=== PATIENT | female | born 1945 | race Caucasian/White ===

== ENCOUNTER 2020-05-23 09:59 | Outpatient (CLI) | payer MEDICARE, SELFPAY ==
--- NOTE | 2020-05-23 14:29 | WPDSIXMINUTE ---
Six Minute Walk This is a 6 minutes walk for exertional dyspnea. Findings: The patient's resting room air oxygen saturation measured by pulse oximetry was 94% and her resting heart rate was 84 bpm. Patient ambulated for 274 meters and oxygen saturation remained 86 to 94%. Heart rate at the end of the study was 110 bpm. Of note this was a 6 minutes walk test for evaluation of pre pulmonary rehabilitation. No oxygen titration was performed. In the future the patient should be formally evaluated for oxygen supplementation with ambulation. There are no prior studies for comparison.
== END 2020-05-23 10:00 | disposition home or self-care (01) ==
LOC: ANHPFT 10:01
PROVIDERS: PCP Family Medicine
DX: J44.9 Chronic obstructive pulmonary disease, unspecified (principal)
CPT/HCPCS: 94618

== ENCOUNTER 2020-09-26 11:00 | Outpatient (RCR) | payer MEDICARE, SELFPAY ==
[2020-05-29 12:30] VITALS: PULSE 75
--- NOTE | 2020-06-07 09:27 | PCCPR ---
Tonya Lara called this am states she has had a headache yesterday and today. She cancelled today's session.
--- NOTE | 2020-06-26 14:56 | PCCPR ---
Jane absent tomorrow 06/27 due to inclement weather.
--- NOTE | 2020-06-30 08:32 | PCCPR ---
Pt cxl NC today due to s/s from COVID vaccine.
--- NOTE | 2020-08-15 10:52 | PCCPR ---
Pt cxl today due to taking daughter to [facility].
--- NOTE | 2020-09-12 12:25 | PCCPR ---
Tonya Lara called states she is not feeling well.
== END 2020-09-26 13:52 | disposition home or self-care (01) ==
LOC: ANHCPREHAB 11:00
PROVIDERS: PCP Family Medicine
DX: J44.9 Chronic obstructive pulmonary disease, unspecified (principal)
CPT/HCPCS: 97150; G0424

== ENCOUNTER 2020-11-08 13:06 | Outpatient (CLI) | payer MEDICARE, SELFPAY ==
--- NOTE | 2020-11-08 16:23 | WPDSIXMINUTE ---
Six Minute Walk Procedure Procedure Performed Pulmonary Stress Test (6 min walk) Six Minute Walk This is a 6 minutes walk test. The test was performed and interpreted in accordance with the 2014 ERS/ATS task force guidelines. Findings: The patient's resting room air oxygen saturation measured by pulse oximetry was 95% and her heart rate was 80 bpm. Patient ambulated for 427 meters and oxygen saturation remained 86 to 97%. Heart rate at the end of the study was 104 bpm. The patient did have desaturations less than 88% at the end of the study and should be formally evaluated for home oxygen.
== END 2020-11-08 13:07 | disposition home or self-care (01) ==
LOC: ANHPFT 13:11
PROVIDERS: PCP Family Medicine; Visit Provider Family Medicine
DX: J44.9 Chronic obstructive pulmonary disease, unspecified (principal)
CPT/HCPCS: 94618

== ENCOUNTER 2022-08-10 09:32 | Emergency (ER) | payer MEDICARE, SELFPAY ==
[2022-08-10 09:39] VITALS: BP 148/86; PULSE 83; RESP 18; TEMP 36.6; O2SAT 96
--- NOTE | 2022-08-10 09:48 | ED.URI ---
HPI - URI/Sore Throat General Chief Complaint: Upper Respiratory Infection Stated Complaint: Chest Congestion/Cough Time Seen by Provider: 08/10/22 09:48 Source: patient and RN notes reviewed Mode of arrival: ambulatory Limitations: no limitations History of Present Illness HPI Narrative: 76-year-old female presented for complaint of cough worsening over the past 4 days. She states she has had sinus congestion and drainage, itching eyes, sneezing for 3 days. This morning she woke at 0100 with chest congestion and frequent cough, productive of yellow sputum. Denies sob, wheezing, n/v/d/f/c. Taking leftover prednisone 30mg x3 days. Also taking zyrtec and nasal spray. Denies sick contacts. MD elicited complaint: cough Related Data Home Medications Medication Instructions Recorded Confirmed acetaminophen 325 mg tablet 650 mg PO QID PRN Pain 05/29/20 08/10/22 albuterol sulfate 2.5 mg/3 mL 2.5 mg inhalation Q4H PRN Wheezing 05/29/20 08/10/22 (0.083 %) solution for nebulization albuterol sulfate 90 mcg/actuation 2 puff inhalation QID PRN 05/29/20 08/10/22 aerosol inhaler Shortness Of Breath alendronate 70 mg tablet 70 mg PO WEEKLY 05/29/20 08/10/22 apixaban 5 mg tablet (Eliquis) 5 mg PO BID 05/29/20 08/10/22 coenzyme Q10 30 mg capsule 30 mg PO DAILY 05/29/20 08/10/22 diphenhydramine 25 1 tablet PO HS PRN Sleep 05/29/20 08/10/22 mg-acetaminophen 500 mg tablet (Tylenol PM Extra Strength) fenofibrate 150 mg capsule 150 mg PO DAILY 05/29/20 08/10/22 ferrous sulfate 325 mg (65 mg 325 mg PO DAILY 05/29/20 08/10/22 iron) tablet fluticasone 250 mcg-salmeterol 50 1 inh inhalation Q12H 05/29/20 08/10/22 mcg/dose blistr powdr for inhalation (Wixela Inhub) furosemide 40 mg tablet 40 mg PO DAILY 05/29/20 08/10/22 levothyroxine 125 mcg capsule 125 mcg PO DAILY 05/29/20 08/10/22 metoprolol succinate 25 mg 12.5 mg PO BID 05/29/20 08/10/22 tablet,extended release 24 hr multivitamin 1 tablet PO DAILY 05/29/20 08/10/22 spironolactone 25 mg tablet 25 mg PO DAILY 05/29/20 08/10/22 Allergies Allergy/AdvReac Type Severity Reaction Status Date / Time No Known Allergies Allergy Verified 08/10/22 09:48 Review of Systems Review of Systems: CONSTITUTIONAL: denies malaise, chills, sweats, fever EYES: Denies visual changes, redness, or discharge ENT: Reports rhinorrhea, congestion, denies sinus pain, otalgia, sore throat CARDIOVASCULAR: Denies chest pain, palpitations, edema RESPIRATORY: Reports cough, post nasal drainage. Denies dyspnea GASTROINTESTINAL: Denies abdominal pain, nausea, vomiting, diarrhea SKIN: Denies rash or itching MUSCULOSKELETAL: denies myalgia NEUROLOGIC: Denies headache PMFSH Past Medical History Medical History (Updated 08/10/22 @ 10:07 by Ara Finley APRN) Abdominal aortic aneurysm Atrial fibrillation Benign neoplasm of aortic body COPD (chronic obstructive pulmonary disease) Hypertension Hypothyroid Surgical History Surgical History (Updated 08/10/22 @ 10:07 by Ara Finley APRN) History of abdominal aortic aneurysm (AAA) repair Family History Family History Mother Hyperlipidemia Father Heart disease Social History Social History Smoking packs per day: 1.5 Smoking cigarettes per day: 30.0 Years smoked: 20 Smoking pack-years: 30.00 Smoking status: Never smoker Tobacco type: cigarettes Exam Narrative: GENERAL: mildly Ill-appearing, nontoxic EYES: PERRLA, conjunctivae clear ENT: Mucous membranes moist. TM pearly faust with dull light reflex bilaterally; no tragal tenderness. Oropharynx erythematous without lesions or exudate, no drooling, no hoarseness, no trismus, uvula midline. NECK: Supple. No lymphadenopathy CHEST: Clear to auscultation, breath sounds equal. Frequent moist cough. No wheezing, rhonchi, rales, or stridor. No respiratory distres
== END 2022-08-10 10:00 | disposition home or self-care (01) ==
PROVIDERS: Emergency Provider Nurse Practitioner Family; PCP Family Medicine
DX: J40 Bronchitis, not specified as acute or chronic (principal); I48.91 Unspecified atrial fibrillation; E03.9 Hypothyroidism, unspecified; I10 Essential (primary) hypertension; J44.9 Chronic obstructive pulmonary disease, unspecified; Z79.01 Long term (current) use of anticoagulants; F17.210 Nicotine dependence, cigarettes, uncomplicated
CPT/HCPCS: 99213; G0463

== ENCOUNTER 2023-03-03 09:45 | Outpatient (RCR) | payer MEDICARE, SELFPAY | END 2023-03-03 23:59 | disposition home or self-care (01) | LOC: ANHCPREHAB 09:45 | PROVIDERS: PCP Family Medicine | DX: J44.9 Chronic obstructive pulmonary disease, unspecified (principal) | CPT/HCPCS: 94625 ==

== ENCOUNTER 2023-03-24 09:45 | Outpatient (RCR) | payer MEDICARE, SELFPAY | END 2023-03-24 10:26 | disposition home or self-care (01) | LOC: ANHCPREHAB 09:45 | PROVIDERS: PCP Family Medicine | DX: J44.9 Chronic obstructive pulmonary disease, unspecified (principal) | CPT/HCPCS: 93798; 94625 ==

== ENCOUNTER 2024-03-29 11:15 | Outpatient (RCR) | payer MEDICARE, SELFPAY ==
[2023-12-02 11:51] VITALS: PULSE 56
== END 2024-03-29 23:59 | disposition home or self-care (01) ==
LOC: ANHCPREHAB 11:15
PROVIDERS: PCP Family Medicine; Visit Provider Internal Medicine
DX: I50.89 Other heart failure (principal)
CPT/HCPCS: 93798

== ENCOUNTER 2024-04-14 11:15 | Outpatient (RCR) | payer MEDICARE, SELFPAY ==
[2024-04-01 00:03] VITALS: PULSE 56
== END 2024-05-19 10:33 | disposition home or self-care (01) ==
LOC: ANHCPREHAB 11:15
PROVIDERS: PCP Family Medicine; Visit Provider Internal Medicine
DX: I50.89 Other heart failure (principal)
CPT/HCPCS: 93798

== ENCOUNTER 2024-12-08 10:00 | Outpatient (RCR) | payer MEDICARE, SELFPAY ==
[2024-08-24 11:58] VITALS: PULSE 68
== END 2024-12-13 07:35 | disposition home or self-care (01) ==
LOC: ANHCPREHAB 10:00
PROVIDERS: PCP Family Medicine; Visit Provider Internal Medicine
DX: Z95.2 Presence of prosthetic heart valve (principal)
CPT/HCPCS: 93798